=== PATIENT | female | born 1960 | race Caucasian/White ===

== ENCOUNTER 2025-03-06 17:01 | Emergency (ER) | payer BC ==
[~2025-03-06] VITALS: Ht 162.6 cm; Wt 54.4 kg
[2025-03-06] MEDS: DEXAMETHASONE SOD PHOSPHATE 4 MG INJ IV ONE (17:10)
[2025-03-06] MEDS ORDERED: POTA20PA34 PO (17:13)
[2025-03-06] MEDS: VANCOMYCIN IV 1,000 MG in IV DEXTROSE 5% 250 ML IV ONE (17:15)
[2025-03-06] MEDS ORDERED: DEXAMETHASONE SOD PHOSPHATE 10 MG INJ ONE (17:23)
[2025-03-06] MEDS: IV NORMAL SALINE 1000 ML BAG IV ONE (17:32)
[2025-03-06] MEDS ORDERED: VANCOMYCIN IV 200 ML ONE (17:33)
[2025-03-06] MEDS ORDERED: CEFTRIAXONE /D5W 50ML IVPB **ER PYXIS IV ONE (17:34)
[2025-03-06 17:43] LABS: PLATELET COUNT (AUTO) 189 K/uL (179-408); RED BLOOD CELL COUNT(AUTO) 4.37 MIL/uL (3.63-4.92); RED CELL DISTRIBUTION WIDTH 14.3 % (12.3-17.7); WHITE BLOOD COUNT (AUTO) 9.8 K/uL (3.8-11.8)
[2025-03-06 17:50] LABS: CREATININE 0.6 mg/dL (0.6-1.3); SODIUM SERUM 136 mmol/L (136-145); UREA NITROGEN, BLOOD 11 mg/dL (7-18)
[2025-03-06 17:56] LABS: ASPARTATE AMINOTRANSFERASE 23 U/L (15-37); ETHANOL < 3 MG/DL (0-10); TOTAL PROTEIN, SERUM 7.5 g/dL (6.4-8.2)
[2025-03-06 18:03] LABS: NT-PRO BNP 223 pg/mL (0-125)
[2025-03-06 19:51] LABS: *BILIRUBIN,URIN NEGATIVE (NEGATIVE); *CLARITY,URINE CLEAR (CLEAR); *COLOR,URINE YELLOW (YELLOW); *KETONES,URINE TRACE (NEGATIVE); *PROTEIN,URINE NEGATIVE (NEGATIVE); *UROBILINOGEN,URINE 0.2 E.U./dl (NORMAL); LEUKOCYTE ESTERASE ,URINE NEGATIVE (NEGATIVE); NITRITE, URINE NEGATIVE (NEGATIVE); UGLUCOSE NEGATIVE (NEGATIVE)
[2025-03-06 19:52] LABS: *BLOOD, URINE TRACE (NEGATIVE)
[2025-03-06 19:58] LABS: SQUAMOUS EPITHELIAL CELL,UR FEW /HPF (NONE SEEN); URINE AMORPHOUS PHOSPHATES FEW /HPF
[2025-03-06 20:13] LABS: *AMPHETAMINE, URINE NEGATIVE (NEGATIVE); *BARBITURATE, URINE NEGATIVE (NEGATIVE); *BENZODIAZEPINE, URINE NEGATIVE (NEGATIVE); *CANNABINOID, URINE NEGATIVE (NEGATIVE); *COCCAINE, URINE NEGATIVE (NEGATIVE); *OPIATE, URINE NEGATIVE (NEGATIVE); *PHENCYCLIDINE SCREEN,URINE NEGATIVE (NEGATIVE); FENTANYL, URINE NEGATIVE (NEGATIVE)
[2025-03-06] MEDS ORDERED: ONDANSETRON 4 MG/2 ML VIAL ONE (20:39)
[2025-03-06] MEDS ORDERED: METOCLOPRAMIDE HCL 10 MG/2 ML VIAL ONE (20:39)
[2025-03-06] MEDS ORDERED: diphenhydrAMINE 50 MG/1 ML VIAL ONE (20:40)
[2025-03-06] MEDS: ONDANSETRON 4 MG/2 ML VIAL IV ONE (20:42)
[2025-03-06] MEDS: METOCLOPRAMIDE HCL 10 MG/2 ML VIAL IV ONE (20:42)
[2025-03-06] MEDS: diphenhydrAMINE 50 MG/1 ML VIAL IV ONE (20:42)
[2025-03-07 00:19] VITALS: BP 164/100; O2SAT 99
== END 2025-03-07 00:40 ==
LOC: ER 17:01
DX: C71.6 Malignant neoplasm of cerebellum (principal); R41.82 Altered mental status, unspecified; C50.919 Malignant neoplasm of unspecified site of unspecified female breast; C79.31 Secondary malignant neoplasm of brain; R06.02 Shortness of breath; I49.3 Ventricular premature depolarization; J11.1 Influenza due to unidentified influenza virus with other respiratory manifestations; Z85.3 Personal history of malignant neoplasm of breast; Z79.899 Other long term (current) drug therapy; Z20.822 Contact with and (suspected) exposure to COVID-19
CPT/HCPCS: 87804 ×2; 80076; 80048; 81001; 83880; 85025; 84145; 85730; 87426; 87040 ×2; 87086; 84484 ×2; 36415; 71045; 70450; 93005; 99291; 96365; 96367; 96368; 96375; 83605; 80299; 80320; 80307; J0696; J1100; J1200; J1953 ×2; J2765; J2405; J3373; J7040 ×2; A4606; A4663; G0480